=== PATIENT | male | born 1940 | race Caucasian/White ===

== ENCOUNTER → 2021-07-09 | Outpatient (CLI) | payer MEDICARE ==
[2021-07-09 12:34] LABS: Alanine Aminotransfer (ALT/SGP 22 U/L (12-78); Albumin, Blood 3.9 g/dL (3.4-5.0); Albumin/Globulin Ratio 1.1 (0.8-1.8); Alk Phos 88 U/L (50-136); Anion Gap 6 mmol/L (6-16); Aspartate Aminotrans (AST/SGOT 20 U/L (12-37); Bilirubin, Total 1.2 mg/dL (0.1-1.0); Blood Urea Nitrogen 21 mg/dL (8-24); Bun/Creatinine Ratio 17.9 (12.0-20.0); CHOL/HDL RATIO 2.2; CO2, Blood 26 mmol/L (21-32); Chloride, Blood 110 mmol/L (98-108); Cholesterol 183 mg/dL (50-200); Creatinine, Blood 1.17 mg/dL (0.60-1.20); Globulin, Blood 3.6 g/dL (2.2-4.0); Glomerular Filtration Rate 60 (60-); Glucose, Blood 105 mg/dL (70-99); HDL Cholesterol 83 mg/dL (>39); LDL/HDL RATIO 0.9; Low Density Lipoprotein Chol 79 mg/dL (0-110); Potassium, Blood 3.7 mmol/L (3.5-5.5); Sodium, Blood 142 mmol/L (136-145); Total Protein, Blood 7.5 g/dL (6.4-8.2); Triglycerides 107 mg/dL (30-160); Very Low Density Lipoprot Chol 21 mg/dL (6-32)
== END | disposition home or self-care (01) ==
LOC: LAB SHORT 10:01 → LAB 10:01
PROVIDERS: Family Medicine
DX: E78.5 Hyperlipidemia, unspecified (principal)
CPT/HCPCS: 36415; 80053; 80061; 83036

== ENCOUNTER → 2022-06-20 | Outpatient (CLI) | payer MEDICARE | LOC: LAB SHORT 14:12 → LAB 14:12 | DX: N39.0 Urinary tract infection, site not specified (principal) | CPT/HCPCS: 87077; 87086; 87186 ==

== ENCOUNTER → 2022-12-10 | Outpatient (CLI) | payer OTHER ==
[2022-12-10 20:20] LABS: BASOPHILS ABSOLUTE AUTO 0.06 K/mm3 (0.00-0.23); BASOPHILS PERCENT AUTO 1 % (0-2); EOSINOPHILS ABSOLUTE AUTO 0.26 K/mm3 (0.00-0.68); EOSINOPHILS PERCENT AUTO 4 % (0-6); Hematocrit 45.3 % (37.0-53.0); IMMATURE GRAN ABSOLUTE AUTO 0.02 K/mm3 (0.00-0.10); IMMATURE GRAN PERCENT AUTO 0 % (0-1); LYMPHOCYTES ABSOLUTE AUTO 1.47 K/mm3 (0.84-5.20); LYMPHOCYTES PERCENT AUTO 22 % (21-46); MONOCYTES ABSOLUTE AUTO 0.54 K/mm3 (0.16-1.47); MONOCYTES PERCENT AUTO 8 % (4-13); Mean Corpuscular HGB 29.1 pg (26.0-34.0); Mean Corpuscular HGB Conc 33.1 g/dL (31.5-36.5); Mean Corpuscular Volume 88 fL (80-100); NEUTROPHILS ABSOLUTE AUTO 4.45 K/mm3 (1.96-9.15); NEUTROPHILS PERCENT AUTO 66 % (41-73); Platelet Count 158 K/mm3 (150-400); RDW Coefficient Variation 12.4 % (11.7-14.2); RDW Standard Deviation 40.3 fL (35.1-46.3); Red Blood Cell Count 5.15 M/mm3 (4.30-5.90)
[2022-12-10 20:25] LABS: Mean Platelet Volume 13.3 fL (9.1-12.4)
[2022-12-10 20:39] LABS: Alanine Aminotransfer (ALT/SGP 26 U/L (12-78); Albumin, Blood 3.5 g/dL (3.4-5.0); Alk Phos 93 U/L (50-136); Anion Gap 2 mmol/L (6-16); Aspartate Aminotrans (AST/SGOT 23 U/L (12-37); Bilirubin, Total 0.6 mg/dL (0.1-1.0); Blood Urea Nitrogen 27 mg/dL (8-24); Bun/Creatinine Ratio 22.5 (12.0-20.0); CO2, Blood 29 mmol/L (21-32); Calcium, Blood 10.5 mg/dL (8.5-10.1); Chloride, Blood 106 mmol/L (98-108); Cholesterol 121 mg/dL (50-200); Globulin, Blood 3.4 g/dL (2.2-4.0); Glomerular Filtration Rate 61 (60-); Glucose, Blood 86 mg/dL (70-99); HDL Cholesterol 60 mg/dL (>39); LDL/HDL RATIO 0.6; Low Density Lipoprotein Chol 39 mg/dL (0-110); Potassium, Blood 3.9 mmol/L (3.5-5.5); Sodium, Blood 137 mmol/L (136-145); Total Protein, Blood 6.9 g/dL (6.4-8.2); Triglycerides 112 mg/dL (30-160); Very Low Density Lipoprot Chol 22 mg/dL (6-32)
== END | disposition home or self-care (01) ==
LOC: LAB SHORT 11:45
PROVIDERS: Physician Assistant
DX: I10 Essential (primary) hypertension (principal); Z79.899 Other long term (current) drug therapy
CPT/HCPCS: 80053; 80061; 82306; 84443; 85025

== ENCOUNTER → 2023-12-10 | Outpatient (CLI) | payer OTHER ==
[2023-12-10 19:40] LABS: BASOPHILS ABSOLUTE AUTO 0.08 K/mm3 (0.00-0.23); BASOPHILS PERCENT AUTO 1 % (0-2); EOSINOPHILS ABSOLUTE AUTO 0.19 K/mm3 (0.00-0.68); EOSINOPHILS PERCENT AUTO 3 % (0-6); Hematocrit 40.8 % (37.0-53.0); Hemoglobin 14.1 g/dL (13.5-17.5); IMMATURE GRAN ABSOLUTE AUTO 0.02 K/mm3 (0.00-0.10); IMMATURE GRAN PERCENT AUTO 0 % (0-1); LYMPHOCYTES PERCENT AUTO 23 % (21-46); MONOCYTES ABSOLUTE AUTO 0.56 K/mm3 (0.16-1.47); MONOCYTES PERCENT AUTO 9 % (4-13); Mean Corpuscular HGB 30.7 pg (26.0-34.0); Mean Corpuscular HGB Conc 34.6 g/dL (31.5-36.5); Mean Corpuscular Volume 89 fL (80-100); Mean Platelet Volume 12.8 fL (9.1-12.4); NEUTROPHILS ABSOLUTE AUTO 3.81 K/mm3 (1.96-9.15); NEUTROPHILS PERCENT AUTO 63 % (41-73); Platelet Count 140 K/mm3 (150-400); RDW Coefficient Variation 13.1 % (11.7-14.2); RDW Standard Deviation 42.5 fL (35.1-46.3); White Blood Cell Count 6.06 K/mm3 (4.00-11.30)
[2023-12-11 18:11] LABS: Magnesium, Blood 2.3 mg/dL (1.6-2.4)
[2023-12-11 18:17] LABS: Alanine Aminotransfer (ALT/SGP 22 U/L (12-78); Albumin, Blood 3.8 g/dL (3.4-5.0); Albumin/Globulin Ratio 1.2 (0.8-1.8); Alk Phos 94 U/L (50-136); Anion Gap 8 mmol/L (3-11); Aspartate Aminotrans (AST/SGOT 21 U/L (12-37); Bilirubin, Total 0.5 mg/dL (0.1-1.0); Blood Urea Nitrogen 40 mg/dL (8-24); Bun/Creatinine Ratio 24.1 (12.0-20.0); CHOL/HDL RATIO 2.6; CO2, Blood 26 mmol/L (21-32); Calcium, Blood 10.7 mg/dL (8.5-10.1); Chloride, Blood 111 mmol/L (98-108); Cholesterol 156 mg/dL (50-200); Creatinine, Blood 1.66 mg/dL (0.60-1.20); Globulin, Blood 3.1 g/dL (2.2-4.0); Glomerular Filtration Rate 41 (60-); Glucose, Blood 134 mg/dL (70-99); HDL Cholesterol 61 mg/dL (>39); Low Density Lipoprotein Chol 60 mg/dL (0-110); Potassium, Blood 3.5 mmol/L (3.5-5.5); Sodium, Blood 141 mmol/L (136-145); Total Protein, Blood 6.9 g/dL (6.4-8.2); Triglycerides 174 mg/dL (30-160); Very Low Density Lipoprot Chol 34 mg/dL (6-32)
== END ==
LOC: LAB 18:17 → LAB SHORT 18:17
PROVIDERS: Family Medicine
DX: K21.9 Gastro-esophageal reflux disease without esophagitis (principal); E78.2 Mixed hyperlipidemia; I12.9 Hypertensive chronic kidney disease with stage 1 through stage 4 chronic kidney disease, or unspecified chronic kidney disease; N18.9 Chronic kidney disease, unspecified
CPT/HCPCS: 80053; 80061; 83735; 85025

== ENCOUNTER → 2024-02-23 | Outpatient (CLI) | payer OTHER | END | disposition home or self-care (01) | LOC: LAB SHORT 10:38 | DX: I25.10 Atherosclerotic heart disease of native coronary artery without angina pectoris (principal) | CPT/HCPCS: 83880 ==

== ENCOUNTER 2024-04-30 13:34 | Inpatient (IN) | payer OTHER ==
[~2024-04-30] VITALS: Ht 157.5 cm; Wt 63.5 kg
[~2024-04-30 13:34] MED LIST: ALBU90OI INH; BENZ100A PO; CHLO25B PO; Diflucan100 MG PO; ELIQUIS2.5 MG PO; FAMO20 PO; FLUT.05NI; FLUTICASONE-SA1 EAC1 INH; KETO15TC TOP; LISI20 PO; LOVA40 PO; MEMA5TAB PO; MIRT15 PO; MONT10T PO; NYSTATIN100000 U13 MT; OMEP20ER PO; TAMS.4ER PO; TRIA15CR3 TOP
[2024-04-30] MEDS ORDERED: NS 1,000 ML IV SCH (13:40)
[2024-04-30 13:58] LABS: BASOPHILS ABSOLUTE AUTO 0.03 K/mm3 (0.00-0.23); BASOPHILS PERCENT AUTO 0 % (0-2); EOSINOPHILS ABSOLUTE AUTO 0.06 K/mm3 (0.00-0.68); EOSINOPHILS PERCENT AUTO 1 % (0-6); Hematocrit 36.7 % (37.0-53.0); Hemoglobin 12.3 g/dL (13.5-17.5); IMMATURE GRAN ABSOLUTE AUTO 0.04 K/mm3 (0.00-0.10); IMMATURE GRAN PERCENT AUTO 1 % (0-1); LYMPHOCYTES ABSOLUTE AUTO 1.53 K/mm3 (0.84-5.20); LYMPHOCYTES PERCENT AUTO 21 % (21-46); MONOCYTES ABSOLUTE AUTO 0.62 K/mm3 (0.16-1.47); MONOCYTES PERCENT AUTO 9 % (4-13); Mean Corpuscular HGB 29.4 pg (26.0-34.0); Mean Corpuscular HGB Conc 33.5 g/dL (31.5-36.5); Mean Corpuscular Volume 88 fL (80-100); Mean Platelet Volume 12.3 fL (9.1-12.4); NEUTROPHILS ABSOLUTE AUTO 5.03 K/mm3 (1.96-9.15); NEUTROPHILS PERCENT AUTO 69 % (41-73); Platelet Count 223 K/mm3 (150-400); RDW Coefficient Variation 12.6 % (11.7-14.2); RDW Standard Deviation 40.3 fL (35.1-46.3); Red Blood Cell Count 4.18 M/mm3 (4.30-5.90); White Blood Cell Count 7.31 K/mm3 (4.00-11.30)
[2024-04-30 14:15] LABS: Albumin, Blood 2.5 g/dL (3.4-5.0); Albumin/Globulin Ratio 0.6 (0.8-1.8); Bilirubin, Total 0.4 mg/dL (0.1-1.0); Bun/Creatinine Ratio 18.4 (12.0-20.0); Calcium, Blood 10.7 mg/dL (8.5-10.1); Creatinine, Blood 3.37 mg/dL (0.60-1.20); Globulin, Blood 4.5 g/dL (2.2-4.0); Potassium, Blood 3.4 mmol/L (3.5-5.5)
[2024-04-30] MEDS ORDERED: Lactated Ringer's 1,000 ML IV SCH (17:00)
[2024-04-30] MEDS ORDERED: Potassium Chloride 20 MEQ/15 ML UDC PO ONE (17:00)
[2024-04-30] MEDS ORDERED: Lactated Ringer's 500 ML IV ONE (17:00)
[2024-04-30 17:14] LABS: Phosphorus, Blood 2.1 mg/dL (2.5-4.9)
[2024-04-30] MEDS ORDERED: Acetaminophen 325 MG TABLET PO PRN (17:45)
[2024-04-30] MEDS ORDERED: Ondansetron HCl 2 MG / ML 2ML Vial IV PRN (17:45)
[2024-04-30] MEDS ORDERED: Labetalol HCL 5 MG/ML 4ML Injection (Single Dose) IV PRN (17:55)
[2024-04-30] MEDS ORDERED: Mometasone/Formoterol MDI 100/5 mcg 13 GM INH SCH (18:00)
[2024-04-30 18:03] LABS: Source, Urine Clean Catch
[2024-04-30 18:11] LABS: Bilirubin, Urine Neg (Neg); Blood, Urine Neg (Neg); Color, Urine Yellow (P-Yellow); Glucose Qualitative, Urine Neg (Neg); Ketones, Urine Neg (Neg); Leukocyte Esterase, Urine 1+ (Neg); Nitrite, Urine Neg (Neg); Protein, Urine Neg (Neg); Urobilinogen, Urine 1+ (Normal)
[2024-04-30 18:25] LABS: Appearance, Urine Hazy (Clear); Bacteria Mod /hpf; Hyaline Casts 0-2 /lpf (0-2); Mucus Light (0-Heavy); Red Blood Cells, Urine 0-2 /hpf (0-2); Squamous Epithelial Cells Rare /hpf (Few)
[2024-04-30 20:08] VITALS: BP 140/77
[2024-04-30 20:47] LABS: Bun/Creatinine Ratio 19.3 (12.0-20.0); Calcium, Blood 10.1 mg/dL (8.5-10.1); Creatinine, Blood 2.8 mg/dL (0.60-1.20); Potassium, Blood 3.4 mmol/L (3.5-5.5)
[2024-04-30] MEDS ORDERED: Apixaban 5 MG Tab PO SCH (21:00)
[2024-04-30] MEDS ORDERED: Memantine HCL 5 MG Tab PO SCH (21:00)
[2024-04-30] MEDS ORDERED: Famotidine 20 MG Tab PO SCH (21:00)
[2024-04-30] MEDS ORDERED: Montelukast Sodium 10 MG Tab PO SCH (21:00)
[2024-04-30] MEDS ORDERED: Mirtazapine 15 MG Tab PO SCH (21:00)
--- NOTE | 2024-04-30 22:17 | NUR ---
PATIENT IS A NEW ADMIT FROM THE ED. TYRELL Griffiths ARRIVED VIA W/C AND SBA W/FWW TO BED. DENIES CHEST PAIN, SOB, AND N/V. ON ROOM AIR. REPORTS RENTS TINY HOUSE BY SELF. LR STARTED @ 125mL/HR. ORIENTED TO ROOM AND CALL LIGHT SYSTEM. REPORTS WANTS TO WATCH [employer] FOOTBALL AFTER ASSESSMENT. WCTM.
[2024-05-01 02:24] VITALS: BP 116/74
--- NOTE | 2024-05-01 04:19 | NUR ---
SHIFT SUMMARY PATIENT HAD NO ACUTE CHANGES. AXOX 4 AND SBA TO BR W/FWW. USES URINAL AT BEDSIDE. DENIES CHEST PAIN, SOB, AND N/V. PIV INTACT. LR INFUSING @ 125 mL/HR. VSS/AFEBRILE. COOPERATIVE WITH CARE. MAKES NEEDS KNOWN. SLEPT MOST OF SHIFT. CALL LIGHT IN REACH. BED IN LOWEST POSITION. WILL CONTINUE TO MONITOR UNTIL DAY SHIFT NURSE ASSUMES CARE.
[2024-05-01 05:35] LABS: Bun/Creatinine Ratio 22.6 (12.0-20.0); Calcium, Blood 9.7 mg/dL (8.5-10.1); Creatinine, Blood 2.21 mg/dL (0.60-1.20); Potassium, Blood 3.6 mmol/L (3.5-5.5)
[2024-05-01] MEDS ORDERED: Omeprazole 20 MG CapCR PO SCH (06:00)
[2024-05-01 08:22] VITALS: BP 152/79
[2024-05-01] MEDS ORDERED: Tamsulosin HCl 0.4 MG Cap PO SCH (09:00)
[2024-05-01] MEDS ORDERED: Atorvastatin 40 MG Tab PO SCH (09:00)
[2024-05-01] MEDS ORDERED: Heparin Sodium,Porcine 5,000 UNIT/0.5 ML SDV SC SCH (09:00)
[2024-05-01 15:18] VITALS: BP 95/62
--- NOTE | 2024-05-01 18:29 | NUR ---
REPORT RECEIVED VERIFIED. UNEVENTFUL DAY FOR PT, WAS HOPING TO GO HOME BUT WILL END UP STAYING THE NIGHT AND REEVALUATING TOMORROW. PT WORKIED WITH PT TODAY AND HE DID VERY WELL, HOME HEALTH RECOMMENDED PER PT PT CALLS APPROPRIATLY AND ABLE TO MAKE NEEDS KNOWN
[2024-05-01 20:05] VITALS: BP 113/60
[2024-05-02 03:29] VITALS: BP 134/73
--- NOTE | 2024-05-02 04:34 | NUR ---
SHIFT SUMMARY PATIENT HAD NO ACUTE CHANGES. AXOX 4 AND SBA W/FWW TO BR. PIV INTACT. LR INFUSING @ 125mL/HR. DENIES CHEST PAIN, SOB, AND N/V,. VSS/AFEBRILE. USES URINAL AT BEDSIDE. WATCHED TV FIRST FEW HOURS OF SHIFT. COOPERATIVE WITH CARE. CALL LIGHT IN REACH. BED IN LOWEST POSITION. WILL CONTINUE TO MONITOR UNTIL DAY SHIFT NURSE ASSUMES CARE.
[2024-05-02 05:23] LABS: BASOPHILS ABSOLUTE AUTO 0.04 K/mm3 (0.00-0.23); BASOPHILS PERCENT AUTO 1 % (0-2); EOSINOPHILS ABSOLUTE AUTO 0.16 K/mm3 (0.00-0.68); EOSINOPHILS PERCENT AUTO 3 % (0-6); Hematocrit 29.3 % (37.0-53.0); Hemoglobin 9.9 g/dL (13.5-17.5); IMMATURE GRAN ABSOLUTE AUTO 0.06 K/mm3 (0.00-0.10); IMMATURE GRAN PERCENT AUTO 1 % (0-1); LYMPHOCYTES ABSOLUTE AUTO 1.25 K/mm3 (0.84-5.20); LYMPHOCYTES PERCENT AUTO 24 % (21-46); MONOCYTES ABSOLUTE AUTO 0.51 K/mm3 (0.16-1.47); MONOCYTES PERCENT AUTO 10 % (4-13); Mean Corpuscular HGB 29.6 pg (26.0-34.0); Mean Corpuscular HGB Conc 33.8 g/dL (31.5-36.5); Mean Corpuscular Volume 88 fL (80-100); NEUTROPHILS ABSOLUTE AUTO 3.18 K/mm3 (1.96-9.15); NEUTROPHILS PERCENT AUTO 61 % (41-73); RDW Coefficient Variation 12.6 % (11.7-14.2); RDW Standard Deviation 40.5 fL (35.1-46.3); Red Blood Cell Count 3.34 M/mm3 (4.30-5.90)
[2024-05-02 05:39] LABS: Mean Platelet Volume 13.1 fL (9.1-12.4); Platelet Count 148 K/mm3 (150-400)
[2024-05-02 05:41] LABS: Albumin, Blood 1.9 g/dL (3.4-5.0); Albumin/Globulin Ratio 0.5 (0.8-1.8); Bilirubin, Total 0.2 mg/dL (0.1-1.0); Bun/Creatinine Ratio 22.1 (12.0-20.0); Creatinine, Blood 1.4 mg/dL (0.60-1.20); Globulin, Blood 3.5 g/dL (2.2-4.0); Potassium, Blood 3.7 mmol/L (3.5-5.5); Total Protein, Blood 5.4 g/dL (6.4-8.2)
[2024-05-02] MEDS ORDERED: Famotidine 20 MG Tab PO SCH (07:59)
[2024-05-02 08:29] VITALS: BP 132/68
--- NOTE | 2024-05-02 13:34 | NUR ---
UNEVENTFUL DAY PT WANTING TO GO HOME SAYS ITS TIME KNOW, I ENC PT TO WAIT FOR MD TO ARRIVE. MD ARRIVED WITH DISCHARGE ORDERS, IV FLUIDS DCED AND PT NOW SITTING UP EATING BREAKFAST, AWAITING FOR WRITTEN ORDERS. 1300 INSTRUCTIONS GIVEN TO PT AND DAUGHTER WAS CALLED FOR RIDE HOME.
== END 2024-05-02 13:20 | disposition home health service (06) | DRG 684 ==
LOC: ER 13:34 → MEDS 19:14
PROVIDERS: Nurse Practitioner Acute Care; Physician Assistant; Student in an Organized Health Care Education/Training Program; ADMIT Internal Medicine
DX: N17.9 Acute kidney failure, unspecified (principal); E86.1 Hypovolemia; R13.10 Dysphagia, unspecified; E87.6 Hypokalemia; I48.0 Paroxysmal atrial fibrillation; J44.9 Chronic obstructive pulmonary disease, unspecified; N40.0 Benign prostatic hyperplasia without lower urinary tract symptoms; I25.10 Atherosclerotic heart disease of native coronary artery without angina pectoris; R79.1 Abnormal coagulation profile; I10 Essential (primary) hypertension; E78.5 Hyperlipidemia, unspecified; K21.00 Gastro-esophageal reflux disease with esophagitis, without bleeding; Z79.899 Other long term (current) drug therapy; Z79.01 Long term (current) use of anticoagulants
CPT/HCPCS: 36415; 51798; 71046; 76770; 80048; 80053; 81001; 82550; 82570; 83735; 83880; 84100; 84300; 84484; 85025; 85379; 92610; 93005; 93010; 94640; 94664; 94760; 96360; 97110; 97116; 97161; 99285-25; A9270; J7030; J7120

== ENCOUNTER → 2024-05-24 | Outpatient (CLI) | payer OTHER ==
[2024-05-24 13:52] LABS: PSA, Free 0.264 ng/mL
== END ==
LOC: LAB SHORT 08:40 → LAB 08:40
PROVIDERS: Nurse Practitioner Family
DX: N40.0 Benign prostatic hyperplasia without lower urinary tract symptoms (principal)
CPT/HCPCS: 84153; 84154